=== PATIENT | male | born 1970 | race African-American/Black ===

== ENCOUNTER 2016-05-23 19:50 | Emergency (ER) | payer OTHER ==
[~2016-05-23] VITALS: Ht 172.7 cm; Wt 72.1 kg
[~2016-05-23 19:50] MED LIST: CLINDAMYCIN HC300 MG PO; CYCLOBENZAPRINE10 MG PO; FLEXERIL10 MG PO; HYDROCODON-ACE1 EAC7 PO; IBUPROFEN600 MG PO; IBUPROFEN800 MG PO; LORTAB 5-325 M1 EACH PO; MEDROL DOSEPAK4 MG PO; NAPROSYN500 MG PO; PEN-VEE K,VEET500 MG PO; ULTRAM50 MG PO; VENTOLIN HFA18 GM IH
[2016-05-23 20:43] LABS: HEMATOCRIT 45.1 % (38.0-50.0); MCH 28.1 PG (29.0-34.0); MCHC 32.6 G/DL (30.0-36.0); MCV 86.1 FL (86-99); MEAN PLAT.VOLUME 8.7 uM^3 (9.0-12.4); PLATELET COUNT 257 K/uL (156-360); RBC DIS.WIDTH-CV 12.6 % (11.8-14.6); RBC DIS.WIDTH-SD 39.7 % (39-53); RED BLOOD COUNT 5.24 M/uL (4.00-5.50); WHITE BLOOD COUNT 9.5 K/uL (4.1-10.2)
[2016-05-23 20:52] LABS: CHLORIDE 105 mEq/L (99-109); POTASSIUM 4.1 mEq/L (3.7-5.4); SODIUM 141 mEq/L (136-147)
[2016-05-23 20:54] LABS: GLUCOSE 125 mg/dL (70-99)
[2016-05-23 20:55] LABS: ANION GAP 9 MEQ/L (2-14)
[2016-05-23 20:57] LABS: GFR ESTIMATE (CALCULATED) > 59 mL/min/
[2016-05-23 20:58] LABS: UREA NITROGEN (BUN) 15 mg/dL (9-23)
[2016-05-23 21:02] LABS: TROP-I INTERPRETATION NEGATIVE; TROPONIN-I < 0.01 ng/mL (0.0-0.30)
[2016-05-24 00:18] LABS: TROP-I INTERPRETATION NEGATIVE; TROPONIN-I < 0.01 ng/mL (0.0-0.30)
[2016-05-24 02:02] LABS: D-DIMER ELISA < 0.15 mg/L FEU (< 0.57)
[2016-05-24 02:46] VITALS: BP 123/91
== END 2016-05-24 02:47 | disposition home or self-care (01) ==
LOC: EME 19:50
PROVIDERS: Emergency Medicine
DX: R07.9 Chest pain, unspecified (principal); F17.200 Nicotine dependence, unspecified, uncomplicated
CPT/HCPCS: 71020; 80048; 84484; 85027; 85379; 93005; 99281; 99284